=== PATIENT | female | born 1960 | race Caucasian/White ===

== ENCOUNTER 2017-06-11 11:35 | Emergency (ER) | payer BC ==
[2017-06-11 11:37] VITALS: BP 160/74; PULSE 69; RESP 14; TEMP 98.4; O2SAT 98
[2017-06-11] MEDS ORDERED: ONDANSETRON HCL 4 MG/2 ML VIAL IV PUSH ONE (12:30)
[2017-06-11] MEDS ORDERED: SODIUM CHLOR 0.9% 1000 ML INJ 1,000 ML IV ONE (12:30)
[2017-06-11 12:36] VITALS: BP 109/67; PULSE 65; RESP 14; O2SAT 99
[2017-06-11 12:37] LABS: AUTOMATED NEUTROPHIL # 6.5 TH/MM3 (1.8-7.7); BASOPHIL % 0.3 % (0.0-2.0); EOSINOPHIL % 0.1 % (0.0-4.0); HEMATOCRIT 41.4 % (35.0-46.0); LYMPH % 8.7 % (9.0-44.0); LYMPHOCYTE # 0.6 TH/MM3 (1.0-4.8); MEAN CELL VOLUME 94.1 FL (80.0-100.0); MEAN CORPUSCULAR HEMOGLOBIN 31.8 PG (27.0-34.0); MEAN CORPUSCULAR HGB CONC 33.7 % (32.0-36.0); MEAN PLATELET VOLUME 9.5 FL (7.0-11.0); MONO % 3.9 % (0.0-8.0); MONOCYTE # 0.3 TH/MM3 (0-0.9); PLATELET COUNT 187 TH/MM3 (150-450); RED CELL DISTRIBUTION WIDTH 13.9 % (11.6-17.2); WHITE BLOOD COUNT 7.5 TH/MM3 (4.0-11.0)
[2017-06-11 12:44] LABS: BILIRUBIN, URINE NEG (NEG); BLOOD, URINE TRACE (NEG); GLUCOSE,URINE NEG (NEG); KETONE, URINE 40 mg/dL (NEG); MUCUS URINE FEW /lpf (OCC); NITRITE,URINE NEG (NEG); URINE COLOR YELLOW (YELLW/STRAW); URINE LEUKOCYTE ESTERASE NEG (NEG)
[2017-06-11 13:08] LABS: ALKALINE PHOSPHATASE 83 U/L (45-117); ALT (GPT) 80 U/L (10-53); TOTAL BILIRUBIN ADULT 0.5 MG/DL (0.2-1.0); TOTAL PROTEIN 8.2 GM/DL (6.4-8.2)
[2017-06-11 13:38] LABS: ALBUMIN 4.4 GM/DL (3.4-5.0); AST (GOT) 55 U/L (15-37); BICARBONATE 27.6 MEQ/L (21.0-32.0); BLOOD UREA NITROGEN 11 MG/DL (7-18); CALCIUM 9.2 MG/DL (8.5-10.1); CHLORIDE 107 MEQ/L (98-107); CREATININE 0.85 MG/DL (0.50-1.00); GLOMERULAR FILTRATION RATE 69 ML/MIN (>89); GLUCOSE,RANDOM 147 MG/DL (74-106); SODIUM (NA) 144 MEQ/L (136-145)
--- NOTE | 2017-06-11 14:19 | PD ---
HPI Chief Complaint: GI Complaint Time Seen by Provider: 11:52 Travel History International Travel<30 days: No Contact w/Intl Traveler<30days: No Traveled to known affect area: No History of Present Illness HPI Patient is a 57-year-old female who comes in complaining of nausea, vomiting, diarrhea. She says it started at 3:30 this morning. She ate some seafood last night, but her friend ate the same thing and is not having any symptoms. She denies any abdominal pain. She says she is unable to keep anything down. She has tried Pepto-Bismol with no relief. She denies fever or chills. She denies chest pain or shortness of breath. [facility] Past Medical History Diminished Hearing: No Tetanus Vaccination: < 5 Years Influenza Vaccination: Yes ?: Not Past Surgical History Gynecologic Surgery: Yes (SURGERY OF CERVIX) Social History Alcohol Use: Yes (BEER DAILY ) Tobacco Use: No (QUIT 18 YEARS AGO) Substance Use: No Allergies-Medications (Allergen,Severity, Reaction): Coded Allergies: sulfamethoxazole (Verified Allergy, Unknown, 06/11/17) trimethoprim (Verified Allergy, Unknown, 06/11/17) Review of Systems Except as stated in HPI: all other systems reviewed are Neg General / Constitutional: No: Fever, Chills HENT: No: Headaches, Lightheadedness Cardiovascular: No: Chest Pain or Discomfort Respiratory: No: Shortness of Breath Gastrointestinal: Positive: Nausea, Vomiting, Diarrhea, No: Abdominal Pain Genitourinary: No: Dysuria Musculoskeletal: No: Myalgias, Edema Skin: No Rash, No Change in Pigmentation Neurologic: No: Weakness, Dizziness Physical Exam Narrative GENERAL: Awake and alert, in no acute distress. SKIN: Focused skin assessment warm/dry. HEAD: Atraumatic. Normocephalic. EYES: Pupils equal and round. No scleral icterus. ENT: Mucous membranes pink and moist. NECK: Trachea midline. No JVD. CARDIOVASCULAR: Regular rate and rhythm. No murmur appreciated. RESPIRATORY: No accessory muscle use. Clear to auscultation. Breath sounds equal bilaterally. GASTROINTESTINAL: Abdomen soft, non-tender, nondistended. No CVA tenderness. MUSCULOSKELETAL: No obvious deformities. No clubbing. No cyanosis. No edema. NEUROLOGICAL: Awake and alert. No obvious cranial nerve deficits. Motor grossly within normal limits. Normal speech. PSYCHIATRIC: Appropriate mood and affect; insight and judgment normal. Data Data Last Documented VS Vital Signs Date Time Temp Pulse Resp B/P (MAP) Pulse Ox O2 Delivery O2 Flow Rate FiO2 06/11/17 12:36 65 14 109/67 (81) 99 06/11/17 11:37 98.4 Orders Orders Iv Access Insert/Monitor (06/11/17 12:17) Complete Blood Count With Diff (06/11/17 12:17) Comprehensive Metabolic Panel (06/11/17 12:17) Sodium Chlor 0.9% 1000 Ml Inj (Ns 1000 M (06/11/17 12:30) Ondansetron Inj (Zofran Inj) (06/11/17 12:30) Urinalysis - C+S If Indicated (06/11/17 12:17) Labs Laboratory Tests Test 06/11/17 12:25 White Blood Count 7.5 TH/MM3 Red Blood Count 4.40 MIL/MM3 Hemoglobin 14.0 GM/DL Hematocrit 41.4 % Mean Corpuscular Volume 94.1 FL Mean Corpuscular Hemoglobin 31.8 PG Mean Corpuscular Hemoglobin Concent 33.7 % Red Cell Distribution Width 13.9 % Platelet Count 187 TH/MM3 Mean Platelet Volume 9.5 FL Neutrophils (%) (Auto) 87.0 % Lymphocytes (%) (Auto) 8.7 % Monocytes (%) (Auto) 3.9 % Eosinophils (%) (Auto) 0.1 % Basophils (%) (Auto) 0.3 % Neutrophils # (Auto) 6.5 TH/MM3 Lymphocytes # (Auto) 0.6 TH/MM3 Monocytes # (Auto) 0.3 TH/MM3 Eosinophils # (Auto) 0.0 TH/MM3 Basophils # (Auto) 0.0 TH/MM3 CBC Comment DIFF FINAL Differential Comment Urine Color YELLOW Urine Turbidity CLEAR Urine pH 6.0 Urine Specific [place] 1.017 Urine Protein TRACE mg/dL Urine Glucose (UA) NEG mg/dL Urine Ketones 40 mg/dL Urine Occult Blood TRACE Urine Nitrite NEG Urine Bilirubin NEG Urine Urobilinogen LESS THAN 2.0 MG/DL Urine Leukocyte Esterase NEG Urine RBC 2 /hpf Urine WBC 3 /hpf Urine Mucus FEW /lpf Microscopic Urinalysis Comment CULT NOT INDICATED Blood Urea Nitrogen 11 MG/DL Creatinine 0.85 MG/DL Random Glucose 147 MG/DL Total Protein 8.2 GM/DL Albumin 4.4 GM/DL Calcium Level 9.2 MG/DL Alkaline Phosphatase 83 U/L Aspartate Amino Transf (AST/SGOT) 55 U/L Alanine Aminotransferase (ALT/SGPT) 80 U/L Total Bilirubin 0.5 MG/DL Sodium Level 144 MEQ/L Potassium Level 4.1 MEQ/L Chloride Level 107 MEQ/L Carbon Dioxide Level 27.6 MEQ/L Anion Gap 9 MEQ/L Estimat Glomerular Filtration Rate 69 ML/MIN [facility] Medical Decision Making Medical Screen Exam Complete: Yes Emergency Medical Condition: Yes Differential Diagnosis Gastroenteritis vs electrolyte abnormalities vs dehydration Narrative Course Patient is a 57-year-old female who comes in complaining of nausea, vomiting, diarrhea. Exam shows no tenderness to palpation of the abdomen. IV established , labs sent. Labs show elevation in AST and ALT. Patient informed of these results. She is advised to follow-up with her doctor regarding this. Given IV fluids and Zofran. She reports feeling better. She is able to drink water without vomiting. She is advised to drink plenty of fluids. Advised to eat a bland diet. Advised to return to the ED as needed for any worsening symptoms. Diagnosis Primary Impression: Nausea, vomiting, and diarrhea Patient Instructions: Acute Nausea and Vomiting (ED), General Instructions Additional Instructions: Drink plenty of fluids. Her liver enzymes, AST and ALT, were elevated today. AST was 55, ALT was 80. You should follow-up with your doctor regarding these, make sure they have returned to normal. Avoid Tylenol and alcohol use. Eat a bland diet if you are feeling hungry. Return to the ED as needed for any worsening symptoms. Disposition: 01 DISCHARGE HOME Condition: Stable Shima Valadez MD Jun 11, 2017 14:19
== END 2017-06-11 14:55 | disposition home or self-care (01) ==
LOC: NEPE 11:35
DX: R11.2 Nausea with vomiting, unspecified (principal); R19.7 Diarrhea, unspecified; R74.8 Abnormal levels of other serum enzymes; Z87.891 Personal history of nicotine dependence
CPT/HCPCS: 80053; 81001; 85025; 96361; 96374; 99284; J2405; J7030